=== PATIENT | male | born 1940 | race Hispanic/Latino ===

== ENCOUNTER 2018-05-05 09:04 | Outpatient (CLI) | payer MEDICARE, OTHER ==
--- NOTE | 2018-05-06 08:53 | Magnetic Resonance Report ---
MRI BRAIN WITH AND WITHOUT CONTRAST INDICATION: Severe headache, left facial palsy. COMPARISON: None similar at this institution. FINDINGS: Multiplanar and multisequence MRI of the brain performed before and after 19 mL MultiHance intravenously. Symmetric, overall age-appropriate ventricles and sulci. No acute infarct, hemorrhage, mass effect or midline shift. No abnormal extra axial fluid collections. Slight periventricular and few white matter FLAIR and T2 weighted hyperintensities. 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 Normal major intracranial vascular flow voids. Normal posterior fossa with preserved basilar cisterns and symmetric seventh and eighth nerve complexes centrally, to the extent assessed, though closely approximated further on the left by extensive mastoiditis as on axial series 6, images 2-8. No suspicious intracranial abnormal enhancement, though subtle abnormal enhancement of the left facial nerve extending from distal intracanalicular segment not excluded on axial series 5, images 7-8 as also coronal series 11, image 16. Moderate to severe right sphenoid sinus mucosal thickening also seen. Mild left sphenoid and bilateral maxillary, ethmoid and frontal sinus mucosal thickening also noted, including a 0.9 cm right maxillary sinus polyp posteriorly as on axial image 5. Slight nasal septal deviation. Symmetric, unremarkable eye globes. A small 1.5 x 0.3 cm right frontal scalp lipoma incidentally noted, axial image 16. Normal midline structures without evidence of Chiari malformation. CONCLUSION: 1. Extensive left mastoiditis may be correlated for clinically in light of provided history of left facial palsy. Additional pansinusitis also seen with greatest involvement of the right sphenoid sinus, as described above. 2. Few other incidental findings, as noted. Thank you for the opportunity to participate in this patient's care.
== END 2018-05-05 09:05 | disposition home or self-care (01) ==
LOC: MRI 09:04
PROVIDERS: ATTEND Internal Medicine
DX: R51 Headache (principal); G51.0 Bell's palsy; J32.0 Chronic maxillary sinusitis; Z90.89 Acquired absence of other organs; E78.00 Pure hypercholesterolemia, unspecified; Z87.891 Personal history of nicotine dependence
CPT/HCPCS: 36415; 70553; 82565; 84520; A9577